=== PATIENT | male | born 1975 | race Caucasian/White ===

== ENCOUNTER 2024-12-15 13:33 | Outpatient (CLI) | payer BC, SELFPAY ==
--- NOTE | ~2024-12-15 | XR_ITS ---
XR lumbar spine 2-3V 12/15/2024 14:53 Indication: Low back pain Procedure: 3 views lumbar spine Comparison: No prior studies for comparison. Findings: Vertebral body heights are maintained. There is facet hypertrophy at L4-5. Pedicles intact. No acute fracture or traumatic malalignment. Sacral foramen are symmetric. There is osteoarthritis of the hips. There is mild disc narrowing at L5-S1. Impression: 1: Mild lumbar spondylosis. Reviewed, dictated and finalized at location O. Impression: 1: Mild lumbar spondylosis.
== END 2024-12-15 13:34 | disposition home or self-care (01) ==
PROVIDERS: PCP Internal Medicine; Visit Provider Internal Medicine
DX: M47.896 Other spondylosis, lumbar region (principal)
CPT/HCPCS: 72100